=== PATIENT | female | born 1960 | race Caucasian/White ===

== ENCOUNTER 2022-05-10 11:55 | Emergency (ER) | payer SELFPAY ==
[2022-05-10] VITALS (7 sets, daily range): BP systolic 122–141; BP diastolic 72–94; PULSE 87–106; RESP 12–20; TEMP 36.6; O2SAT 97–100
--- NOTE | 2022-05-10 11:57 | XRR_ITS ---
PROCEDURE INFORMATION: Exam: XR Chest Exam date and time: 05/10/2022 12:27 PM Age: 61 years old Clinical indication: Shortness of breath; Angina pectoris; Patient HX: Chest pain and SOB since this morning. Level 8 pain TECHNIQUE: Imaging protocol: Radiologic exam of the chest. Views: 1 view. COMPARISON: No relevant prior studies available. FINDINGS: Lungs: Unremarkable. No consolidation. Pleural spaces: Unremarkable. No pleural effusion. No pneumothorax. Heart/Mediastinum: Benign lymph node is seen in the right paratracheal region 20 mm x 9 mm. No cardiomegaly. Bones/joints: Unremarkable. XR/XR chest 1V portable [id number] IMPRESSION: No acute findings.
--- NOTE | 2022-05-10 12:02 | ED_ITS ---
HPI - Chest Pain General: Chief Complaint: Chest Pain Stated Complaint: CHEST PAIN Time Seen by Provider: 05/10/22 11:57 Source: patient Mode of arrival: ambulatory History of Present Illness: 61-year-old female presents to the emergency room with complaint of chest pain. 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 Is nonradiating no shortness of breath she is somewhat nauseated. She is given aspirin and nitro in route with no relief of symptoms. No radiation of chest pain. MD complaint: chest pain Onset (ago): hour(s) Timing of current episode: episodic Onset: during exertion Pain radiation: none Severity: moderate Quality: sharp Relieving factors: nothing Exacerbating factors: nothing Associated symptoms: Deny abdominal pain, dyspnea, fever(s), nausea or vomiting Treatment prior to arrival: aspirin and nitroglycerin Review of Systems Const: Denies: fever(s), chills, body aches, change in appetite, fatigue or malaise ENMT: Denies: throat pain, ear or mastoid pain, nasal discharge or nasal congestion Card: Denies: chest pain, edema, dyspnea on exertion or orthopnea Resp: Denies: dyspnea, productive cough or non-productive cough GI: Denies: abdominal pain, nausea, vomiting, hematemesis, coffee ground emesis, diarrhea, constipation, bloating, hematochezia or melena : Denies: flank pain, difficulty voiding, dysuria, urinary frequency or urinary urgency Skin/Breast: Denies: rash or pruritus PFSH ED PFSH: Medical History (Updated 05/10/22 @ 14:56 by Omkar Hernandez DO) COPD (chronic obstructive pulmonary disease) Hypertension Social History (Updated 05/10/22 @ 14:50 by Omkar Hernandez DO) Smoking and tobacco status: current every day smoker Alcohol intake: never Physical Exam Const: GENERAL APPEARANCE: cooperative and comfortable ORIENTATION/ CONSCIOUSNESS: Yes awake, Yes oriented to person, Yes oriented to place and Yes oriented to time HENMT: COMMON NORMALS: normocephalic, atraumatic and hearing grossly normal bilaterally HEAD & SCALP: normocephalic and atraumatic Resp: COMMON NORMALS: normal respiratory effort, No retractions, No use of accessory muscles and clear to auscultation bilaterally AUSCULTATION: clear to auscultation bilaterally Cardio: COMMON NORMALS: regular rate, regular rhythm and No murmurs present (Cardio) RATE: regular rate RHYTHM: regular rhythm GI: COMMON NORMALS: Soft to palpation and No hepatosplenomegaly present AUSCULTATION: Yes normoactive bowel sounds PALPATION: Yes Soft to palpation, No Tenderness to palpation present (GI), No Guarding due to palpation present (GI) and Yes No hepatosplenomegaly present Extremity: COMMON NORMALS: normal to inspection, capillary refill normal, no clubbing, cyanosis or edema, no calf tenderness and no pedal edema Neuro: SENSORIUM/ORIENTATION: Yes oriented to person, Yes oriented to place and Yes oriented to time Skin: COMMON NORMALS: no rashes or lesions noted GENERAL SKIN EXAM: no r ashes or lesions noted Course Vital Signs: Vital signs: Vital Signs Temperature 97.8 F 05/10/22 11:56 Pulse Rate 96 05/10/22 15:06 Respiratory Rate 20 H 05/10/22 14:30 Blood Pressure 135/82 05/10/22 15:06 Pulse Oximetry 97 05/10/22 15:06 Oxygen Delivery Me thod 05/10/22 14:30 Oxygen Flow Rate 2 05/10/22 11:56 MDM - Chest Pain Medical Decision Making Labs and imaging reviewed EKG and cardiac enzymes unremarkable. Will discharge patient home. Started on isosorbide mononitrate daily also add baby aspirin and Protonix set up outpatient Lexiscan sestamibi stress test return to the emergency room fizzing worsening symptoms. Avoid exertional activities. Medical Records I reviewed the patient's medical records. Lab Data I reviewed the patient's lab results. : 05/10/22 12:10 05/10/22 12:10 Radiology Impressions Chest X-Ray 05/10/22 11:57 IMPRESSION: No acute findings. Laboratory Results WBC 9.2 10^3/uL (4.0-10.0) 05/10/22 12:10 RBC 4.29 10^6/uL (4.1-5.3) 05/10/22 12:10 Hgb 12.9 g/dL (11.5-15.3) 05/10/22 12:10 Hct 40.7 % (37.0-47.0) 05/10/22 12:10 MCV 94.9 fl (81-99) 05/10/22 12:10 MCH 30.1 pg (28.0-34.0) 05/10/22 12:10 MCHC 31.7 g/dL (30.0-36.0) 05/10/22 12:10 RDW 14.1 % (12.1-15.1) 05/10/22 12:10 Plt Count 429 10^3/cmm (130-400) H 05/10/22 12:10 MPV 9.3 fL (7.4-10.4) 05/10/22 12:10 Neut % (Auto) 58.4 % 05/10/22 12:10 Lymph % (Auto) 26.7 % 05/10/22 12:10 [place] % (Auto) 10.6 % 05/10/22 12:10 Eos % (Auto) 2.9 % 05/10/22 12:10 Baso % (Auto) 1.0 % 05/10/22 12:10 Neut # (Auto) 5.39 10^3/uL (1.8-7.7) 05/10/22 12:10 Lymph # (Auto) 2.5 10^3/uL (0.8-4.8) 05/10/22 12:10 [place] # (Auto) 1.0 10^3/uL (0.2-0.9) H 05/10/22 12:10 Eos # (Auto) 0.3 10^3/uL (0.0-0.8) 05/10/22 12:10 Baso # (Auto) 0.1 10^3/uL (0.0-0.1) 05/10/22 12:10 Nucleated RBC % (auto) 0 % 05/10/22 12:10 Nucleated RBCs # 0.0 /100WBC 05/10/22 12:10 Sodium 138 mmol/L (136-145) 05/10/22 12:10 Potassium 4.7 mmol/L (3.5-5.1) 05/10/22 12:10 Chloride 103 mmol/L (98-107) 05/10/22 12:10 Carbon Dioxide 19 mmol/L (22-29) L 05/10/22 12:10 Anion Gap 20.7 (5-19) H 05/10/22 12:10 BUN 24 mg/dL (8-23) H 05/10/22 12:10 Creatinine 0.7 mg/dL (0.5-0.9) 05/10/22 12:10 GFR Calculation 84.8 mL/min (90-130) L 05/10/22 12:10 Glucose 101 mg/dL (65-115) 05/10/22 12:10 Calculated Osmolality 290 mOsm/kg (285-295) 05/10/22 12:10 Calcium 9.1 mg/dL (8.5-10.5) 05/10/22 12:10 Total Bilirubin 0.2 mg/dL (0.15-1.2) 05/10/22 12:10 AST 20 U/L (0-32) 05/10/22 12:10 ALT 22 U/L (0-33) 05/10/22 12:10 Alkaline Phosphatase 98 U/L (35-105) 05/10/22 12:10 Troponin T Baseline 70 ng/L (0-10) H 05/10/22 12:10 Troponin T 120 Minute 60.04 ng/L (0-10) H 05/10/22 14:05 Delta Troponin T -9.96 ABS# (0-10) L 05/10/22 14:05 Total Protein 6.8 g/dL (6.6-8.7) 05/10/22 12:10 Albumin 4.0 g/dL (3.5-5.2) 05/10/22 12:10 Globulin 2.8 g/dL (1.3-4.6) 05/10/22 12:10 Lipase 30 U/L (13-60) 05/10/22 12:10 Discharge Plan Discharge Patient Disposition: Home Clinical Impression: Chest pain, Hypertension, Gastroesophageal reflux disease Condition: Stable Prescriptions: New Protonix 40 mg tablet,delayed release (DR/EC) 40 mg PO DAILY Qty: 30 0RF isosorbide mononitrate 30 mg tablet extended release 24 hr 30 mg PO DAILY Qty: 30 0RF aspirin 81 mg tablet,delayed release (DR/EC) 81 mg PO DAILY Qty: 30 0RF No Action Aspir-81 81 mg Tablet,Delayed Release (Dr/Ec) 243 mg PO .ONCE albuterol sulfate 90 mcg/actuation Hfa Aerosol Inhaler 2 puff INHALATION QID PRN (Reason: Shortness Of Breath) Excedrin Extra Strength 250-250-65 mg Tablet 3 tab PO .2-3 TIMES A DAY Prilosec OTC 20 mg Tablet,Delayed Release (Dr/Ec) 60 mg PO DAILY PRN (Reason: Heartburn) Discharge Orders: Discharge ED (Routine); Ordered 05/10/22 Ordered By: Omkar Hernandez Referrals: Jeet Valera MD [Primary Care Provider] - Discharge Diet: Usual diet Discharge Activity: Limit activity as instructed Patient Instructions: Opioid Safety, Pain Management Activity Restrictions/Additional Instructions: Case management make arrangements for an outpatient Lexiscan sestamibi stress test. Coding Level of Care Code ED Government Sales Manager for Chg Fwd Exam Detailed
--- NOTE | 2022-05-10 12:07 | ECG_ITS ---
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 Measurements Intervals [place] Rate: 94 P: 79 [place]: 158 QRS: 71 QRSD: 78 T: 78 QT: 347 QTc: 435 Interpretive Statements SINUS RHYTHM No previous ECG available for comparison Electronically Signed On 05-11-2022 8:27:04 CDT by Rey Cloud M.D. [email or web address]
--- NOTE | 2022-05-10 12:19 | PC.PHAR ---
pt states she takes no rx medications-pt states has an albuterol inhaler from a long time ago and uses prn ext med history doesnt show when last filled-pt states has lots of heartburn and takes 3 caps of prilosec otc once a day as needed-pt and pts states the pt takes excedrin 3 tabs bid to tid -notes are made in the pharmacy comments
[2022-05-10 12:43] LABS: Troponin(5th) Baseline 70 ng/L (0-10)
[2022-05-10 12:44] LABS: Alkaline Phosphatase 98 U/L (35-105); Blood Urea Nitrogen 24 mg/dL (8-23); Calcium 9.1 mg/dL (8.5-10.5); Carbon Dioxide 19 mmol/L (22-29); Chloride 103 mmol/L (98-107); Globulin 2.8 g/dL (1.3-4.6); Glomerular Filtration Rate 84.8 mL/min (90-130); Glucose 101 mg/dL (65-115); Lipase 30 U/L (13-60); Osmolality Calculated 290 mOsm/kg (285-295); Sodium 138 mmol/L (136-145); Total Bilirubin 0.2 mg/dL (0.15-1.2); Total Protein 6.8 g/dL (6.6-8.7)
[2022-05-10 12:53] LABS: Alanine Aminotransferase 22 U/L (0-33); Anion Gap 20.7 (5-19); Aspartate Amino Transferase 20 U/L (0-32); Potassium 4.7 mmol/L (3.5-5.1)
[2022-05-10 13:11] LABS: Basophils # 0.1 10^3/uL (0.0-0.1); Eosinophils # 0.3 10^3/uL (0.0-0.8); Eosinophils % 2.9 %; Hematocrit 40.7 % (37.0-47.0); Hemoglobin 12.9 g/dL (11.5-15.3); Lymphocytes # 2.5 10^3/uL (0.8-4.8); Lymphocytes % 26.7 %; Mean Corpuscular HGB Conc 31.7 g/dL (30.0-36.0); Mean Corpuscular Hemoglobin 30.1 pg (28.0-34.0); Mean Corpuscular Volume 94.9 fl (81-99); Mean Platelet Volume 9.3 fL (7.4-10.4); Monocytes % 10.6 %; Neutrophils # 5.39 10^3/uL (1.8-7.7); Neutrophils % 58.4 %; Nucleated Red Blood Cells % 0 %; Platelet Count 429 10^3/cmm (130-400); Red Blood Count 4.29 10^6/uL (4.1-5.3); Red Cell Distribution Width 14.1 % (12.1-15.1); White Blood Count 9.2 10^3/uL (4.0-10.0)
[2022-05-10] MEDS: morphine 4 mg/mL SDV 1 mL IVP (13:19)
[2022-05-10 14:35] LABS: Troponin 5 2HR 60.04 ng/L (0-10)
[2022-05-10 14:36] LABS: Troponin 5 2HR Delta -9.96 ABS# (0-10)
--- NOTE | 2022-05-11 12:02 | DCPLANNER ---
harvest manager had message to schedule an outpatient stress test for patient. harvest manager called patient to confirm that patient wanted the test scheduled and to confirm who patient sees for primary care physician. harvest manager called phone number [phone], listed in chart, phone just rang and rang. harvest manager called phone number [phone] listed as family, the name on the voicemail did not match the name listed on the chart. harvest manager unable to speak with patient or leave a voicemail for patient.
== END 2022-05-10 15:07 | disposition home or self-care (01) ==
PROVIDERS: Emergency Provider Family Medicine; PCP Family Medicine
DX: R07.9 Chest pain, unspecified (principal); I10 Essential (primary) hypertension; K21.9 Gastro-esophageal reflux disease without esophagitis; Z79.82 Long term (current) use of aspirin; J44.9 Chronic obstructive pulmonary disease, unspecified; F17.210 Nicotine dependence, cigarettes, uncomplicated
CPT/HCPCS: 36415; 71045; 80053; 83690; 84484; 85025; 93005; 96374; 99285; J2270